=== PATIENT | male | born 1990 | race Two or more races ===

== ENCOUNTER 2019-03-04 00:07 | Emergency (ER) | payer OTHER ==
--- NOTE | 2019-03-04 01:06 | EDPHY ---
H & P Stated Complaint: Tongue "swelling", jaw pain, headache, neck pain Time Seen by Provider: 03/04/19 01:06 HPI/ROS: HPI CHIEF COMPLAINT: Stress, anxiety. HISTORY OF PRESENT ILLNESS: Patient is a 28-year-old male, presents emergency room stating that he has felt really stressed, anxious. States he has been working on a project nightly and staying up all night taking Adderall, he takes 60-70 mg of Adderall. Patient reports that he has not been sleeping staying up all night working on a project. States he feels very stressed, very tense. He denies any chest pain shortness of breath, denies any vomiting. Denies diarrhea. Denies abdominal pain. Decided come the emergency room causes stressed. Past Medical History: Denies significant medical history Past Surgical History: Denies significant surgical history Social History: He denies drugs, smokes tobacco, alcohol occasional. Family History: Noncontributory ROS REVIEW OF SYSTEMS: 10 Systems were reviewed and negative with the exception of the elements mentioned in the history of present illness. Exam Constitutional triage nursing summary reviewed, vital signs reviewed, awake/ alert. Vital signs stable. Eyes normal conjunctivae and sclera, EOMI, PERRLA. HENT normal inspection, atraumatic, moist mucus membranes, no epistaxis, neck supple/ no meningismus, no raccoon eyes. Respiratory clear to auscultation bilaterally, normal breath sounds, no respiratory distress, no wheezing. Cardiovascular rate normal, regular rhythm, no murmur, no edema, distal pulses normal. Gastrointestinal soft, non-tender, no rebound, no guarding, normal bowel sounds, no distension, no pulsatile mass. Genitourinary no CVA tenderness. Musculoskeletal no midline vertebral tenderness, full range of motion, no calf swelling, no tenderness of extremities, no meningismus, good pulses, neurovascularly intact. Skin pink, warm, & dry, no rash, skin atraumatic. Neurologic awake, alert and oriented x 3, AAOx3, moves all 4 extremities equally, motor intact, sensory intact, CN II-XII intact, normal cerebellar, normal vision, normal speech. Psychiatric normal mood/affect. Heme/Lymph/Immune no lymphadenopathy. Differential Diagnosis: Includes but is not limited to in a particular order stress reaction, acute anxiety, panic attack. Medical Decision Making: Plan for this patient IV establishment IV fluid bolus , basic labs, IV Ativan 0.5 mg and re-evaluate. Re-evaluation: 0437: Patient re-evaluated this time is been monitored here in emergency room for 4 hr. Received IV fluids and IV Ativan. He is doing very well. He rested. He denies any chest pain or shortness of breath. He has been taking rather large amount of Adderall to study in finish a project. I do believe this is contributing to his anxiety and stress. I highly recommend he refrain from taking Adderall. Or large doses of it. Recommend he rest, stay well- hydrated and takes care of himself. Additionally we discussed return precautions return emergency room if develops worsening anxiety, vomiting, chest pain, shortness of breath, not doing well. He reports to me does feel better after IV Ativan IV fluids. No chest pain no shortness of breath and is requesting to be discharged home. Source: Patient - Personal History Current Tetanus Diphtheria and Acellular Pertussis (TDAP): Yes - Medical/Surgical History Hx Asthma: No Hx Chronic Respiratory Disease: No Hx Diabetes: No Hx Cardiac Disease: No Hx Renal Disease: No Hx Cirrhosis: No Hx Alcoholism: No Hx HIV/AIDS: No Hx Splenectomy or Spleen Trauma: No Other PMH: Sinus surgery. - Social History Smoking Status: Heavy smoker Constitutional: Initial Vital Signs Temperature (C) 36.8 C 03/04/19 00:08 Heart Rate 114 H 03/04/19 00:08 Respiratory Rate 17 03/04/19 00:08 Blood Pressure 127/82 H 03/04/19 00:08 O2 Sat (%) 95 03/04/19 00:08 O2 Delivery Mode Room Air Allergies/Adverse Reactions: No Known Allergies Allergy (Verified 03/04/19 00:08) Home Medications: Medication Instructions Recorded Methocarbamol [Robaxin 750 mg (*)] 750 - 1,500 mg PO QID PRN #30 tab 04/17/17 Penicillin V Potassium [Pen Vk 500 mg PO TID #42 tab 04/17/17 500mg (*)] traMADol [Ultram 50 mg (*)] 50 - 100 mg PO Q4 PRN #15 tab 04/17/17 Acetaminophen [Pain Relief] 325 mg PO Q6 PRN #30 capsule 04/19/17 Hydrocodone/Acetaminophen [[place] 1 - 2 tab PO Q6H PRN #16 tab 04/19/17 5/325 (*)] Ibuprofen 600 mg PO Q8 PRN #30 tablet 04/19/17 Clindamycin HCl [Clindamycin] 300 mg PO TID #30 cap 04/22/17 Hydrocodone/APAP 5/325 [[place] 1 tab PO Q8 #21 tab 04/22/17 5/325 (*)] Medical Decision Making - Data Points Laboratory Results: Laboratory Results 03/04/19 01:30 03/04/19 01:30 03/04/19 03/04/19 01:30 01:30 WBC 5.99 10^3/uL 10^3/uL (3.80-9.50) RBC 5.81 10^6/uL 10^6/uL (4.40-6.38) Hgb 17.2 g/dL g/dL (13.7-17.5) Hct 49.1 % % (40.0-51.0) MCV 84.5 fL fL (81.5-99.8) MCH 29.6 pg pg (27.9-34.1) MCHC 35.0 g/dL g/dL (32.4-36.7) RDW 13.4 % % (11.5-15.2) Plt Count 297 10^3/uL 10^3/uL (150-400) MPV 9.0 fL fL (8.7-11.7) Neut % (Auto) 35.2 % L % (39.3-74.2) Lymph % (Auto) 47.7 % H % (15.0-45.0) [place] % (Auto) 8.8 % % (4.5-13.0) Eos % (Auto) 7.0 % % (0.6-7.6) Baso % (Auto) 1.0 % % (0.3-1.7) Nucleat RBC Rel Count 0.0 % % (0.0-0.2) Absolute Neuts (auto) 2.10 10^3/uL 10^3/uL (1.70-6.50) Absolute Lymphs (auto) 2.86 10^3/uL 10^3/uL (1.00-3.00) Absolute Monos (auto) 0.53 10^3/uL 10^3/uL (0.30-0.80) Absolute Eos (auto) 0.42 10^3/uL H 10^3/uL (0.03-0.40) Absolute Basos (auto) 0.06 10^3/uL 10^3/uL (0.02-0.10) Absolute Nucleated RBC 0.00 10^3/uL 10^3/uL (0-0.01) Immature Gran % 0.3 % % (0.0-1.1) Immature Gran # 0.02 10^3/uL 10^3/uL (0.00-0.10) Sodium 141 mEq/L mEq/L (135-145) Potassium 4.1 mEq/L mEq/L (3.5-5.2) Chloride 103 mEq/L mEq/L (97-110) Carbon Dioxide 30 mEq/l mEq/l (22-31) Anion Gap 8 mEq/L mEq/L (6-14) BUN 12 mg/dL mg/dL (7-23) Creatinine 0.8 mg/dL mg/dL (0.7-1.3) Estimated GFR > 60 Glucose 82 mg/dL mg/dL (70-100) Calcium 9.7 mg/dL mg/dL (8.5-10.4) Medications Given: Discontinued Medications Sodium Chloride (Ns) 1,000 mls @ 0 mls/hr IV EDNOW ONE; Wide Open PRN Reason: Protocol Stop: 03/04/19 01:13 Last Admin: 03/04/19 01:28 Dose: 1,000 mls Lorazepam (Ativan Injection) 0.5 mg IVP EDNOW ONE Stop: 03/04/19 01:14 Last Admin: 03/04/19 01:28 Dose: 0.5 mg Departure - Departure Disposition: Home, Routine, Self-Care Clinical Impression: Anxiety Condition: Good Instructions: Anxiety (ED) Additional Instructions: 1. Rest stay well-hydrated. 2. Take care of yourself exercise and resting get appropriate sleep. 3. I would cut back on taking this large amount of Adderall. Referrals: Poppy Vargas MD [Primary Care Provider] - As per Instructions
[2019-03-04] MEDS ORDERED: NS 1,000 ML IV ONE (01:12)
[2019-03-04] MEDS ORDERED: LORazepam 2 MG/ML INJ IVP ONE (01:13)
[2019-03-04 01:40] LABS: PLATELET COUNT 297 10^3/uL (150-400)
[2019-03-04 04:21] VITALS: BP 131/79
== END 2019-03-04 04:54 | disposition home or self-care (01) ==
DX: F41.9 Anxiety disorder, unspecified (principal); F17.200 Nicotine dependence, unspecified, uncomplicated; Z73.3 Stress, not elsewhere classified
CPT/HCPCS: 96374; J2060